=== PATIENT | female | born 1990 | race Caucasian/White ===

== ENCOUNTER 2018-02-03 04:14 | Emergency (ER) | payer OTHER ==
[~2018-02-03] VITALS: Ht 172.7 cm; Wt 97.5 kg
[~2018-02-03 04:14] MED LIST: LEVAQUIN750 MG PO; PROMETHAZINE W118 ML PO; SYNTHROID50 MCG
[2018-02-03] MEDS ORDERED: HIERRO (04:27)
[2018-02-03] MEDS ORDERED: SYNTHROID50 MCG (04:28)
[2018-02-03] MEDS ORDERED: KETO10TA2 PO (06:51)
== END 2018-02-03 07:18 ==
LOC: ER 04:14
DX: S80.02XA Contusion of left knee, initial encounter (principal); W18.39XA Other fall on same level, initial encounter; Y93.89 Activity, other specified; Y92.098 Other place in other non-institutional residence as the place of occurrence of the external cause; Y99.8 Other external cause status

== ENCOUNTER 2023-04-07 12:03 | Emergency (ER) | payer OTHER ==
[~2023-04-07] VITALS: Ht 363.2 cm; Wt 110.7 kg
[~2023-04-07 12:03] MED LIST changes: +DIPHENHYDRAMINE 25 MG; +HIERRO; +KETO10TA2 PO; +PEPCID AC20 MG; +PREDNISONE 20 MG.
[2023-04-07] MEDS ORDERED: FUSION PLUS CA1 EACH PO (12:34)
[2023-04-07] MEDS ORDERED: TIROSINT88 MCG PO (12:34)
== END 2023-04-07 14:54 | disposition home or self-care (01) ==
LOC: ER 12:03
DX: J06.9 Acute upper respiratory infection, unspecified (principal); J00 Acute nasopharyngitis [common cold]; Z88.0 Allergy status to penicillin; Z88.2 Allergy status to sulfonamides

== ENCOUNTER 2023-06-22 13:45 | Inpatient (IN) | payer OTHER ==
[~2023-06-22] VITALS: Ht 170.2 cm; Wt 111.1 kg
[~2023-06-22 13:45] MED LIST changes: +FUSION PLUS CA1 EACH PO; +LEVSIN/SL0.125 MG SL; +ONDANSETRON ODT4 MG PO; +PEPCID40 MG PO; +TIROSINT88 MCG PO
[2023-06-22 16:07] LABS: HEMATOCRIT 35.7 % (36.0-45.00); HEMOGLOBIN 11.9 g/dL (12.0-15.00); MEAN CELL VOLUME 81.7 fL (80.00-100.00); MEAN CORPUSCULAR HEMOGLOBIN 27.3 pg (27.00-32.0); MEAN CORPUSCULAR HGB CONC 33.4 g/dl (32.0-36.0); PLATELET COUNT 328 K/uL (150-450); RED BLOOD COUNT 4.37 M/uL (4.00-6.00); RED CELL DISTRIBUTION WIDTH 16.1 % (11.5-14.5)
[2023-06-22 16:31] LABS: URINE APPEARANCE Clear; URINE BILIRRUBIN Negative (NEGATIVE); URINE BLOOD Negative; URINE COLOR Yellow; URINE GLUCOSE Negative (NEGATIVE); URINE LEUKOCYTE Negative; URINE NITRATE Negative; URINE PROTEIN Negative (NEGATIVE); URINE UROBILINOGEN 0.2 E.U./dl
[2023-06-22 16:32] LABS: URINE BACTERIA 2109.1 uL (0.0-1933); URINE EPITHELIAL CELLS 55.9 uL (0.0-38.8); URINE RBC 18.1 uL (0.0-20.8); URINE WBC 8.3 uL (0.0-23.2)
[2023-06-22 16:32] LABS: ALBUMIN 3.5 gm/dL (3.4-5.0); ALKALINE PHOSPHATASE 57 U/L (50-136); ALT/SGPT 61 U/L (12-78); ANION GAP 6 (10.0-20.0); AST/SGOT 25 U/L (15-37); BILIRUBIN TOTAL 0.23 mg/dL (0.3-1.2); BILIRUBIN,CONJUGATED < 0.10 mg/dL (0.0-0.2); BILIRUBIN,UNCONJUGATED 0.13 mg/dL (0.0-0.6); BLOOD UREA NITROGEN 9 mg/dL (7-18); BUN CREA RATIO 13 (7.0-25.0); CALCIUM 8.6 mg/dL (8.5-10.1); CARBON DIOXIDE 29 mEq/L (21-32); CHLORIDE 105 mmol/L (98-107); CREATININE SERUM 0.68 mg/dL (0.55-1.02); GFR 101.59; GLOBULINA 5.1 G/DL (2.4-3.5); GLUCOSE FASTING 87 mg/dL (65-100); LIPASE 32 U/L (13-75); OSMOLALITY SERUM 272 MOSM/KG (275-295); POTASSIUM 3.47 mEq/L (3.5-5.1); SODIUM 137 mmol/L (136-145); TOTAL PROTEIN 8.6 gm/dL (6.4-8.2)
[2023-06-23 00:09] LABS: INR 1.01; PARTIAL THROMBOPLASTIN TIME 26.8 SECONDS (22.0-34.0); PROTHROMBIN TIME 10.6 SECONDS (9.0-11.5)
== END 2023-06-25 16:56 | disposition home or self-care (01) | DRG 419 ==
LOC: ER 13:45 → MEDJ 20:38
PROVIDERS: Nurse Practitioner Family; Surgery; ADMIT Specialist; ATTEND Specialist
PROC: BW40ZZZ Ultrasonography of Abdomen (ICD-10-PCS; 2023-06-22)
PROC: 0FT44ZZ Resection of Gallbladder, Percutaneous Endoscopic Approach (ICD-10-PCS; principal; 2023-06-24 08:00)
DX: K80.10 Calculus of gallbladder with chronic cholecystitis without obstruction (principal); E03.9 Hypothyroidism, unspecified

== ENCOUNTER 2025-03-06 19:15 | Emergency (ER) | payer OTHER ==
[~2025-03-06] VITALS: Ht 170.2 cm; Wt 108.9 kg
[2025-03-06 19:22] VITALS: BP 124/81; O2SAT 98
[2025-03-06] MEDS ORDERED: FAMOTIDINE/PF 20 MG in 0.9 % SODIUM CHLORIDE 8 ML IV PUSH STA (19:58)
[2025-03-06] MEDS ORDERED: KETOROLAC TROMETHAMINE 30 MG VIAL IV ONE (20:00)
[2025-03-06] MEDS ORDERED: ONDANSETRON HCL 2 MG/ML VIAL IV ONE (20:00)
[2025-03-06] MEDS ORDERED: 0.9 % SODIUM CHLORIDE 1,000 ML IV SCH (20:00)
[2025-03-06] MEDS ORDERED: ONDANSETRON HCL 2 MG/ML VIAL ONE (20:09)
[2025-03-06] MEDS ORDERED: KETOROLAC TROMETHAMINE 30 MG VIAL ONE (20:09)
[2025-03-06] MEDS ORDERED: FAMOTIDINE/PF 20 MG/2 ML VIAL ONE (20:10)
[2025-03-06 20:44] LABS: BASO % 0.5 % (0.1-1.2); EOS # 0.24 (0.04-0.54); EOS % 2.5 % (0.7-7.0); HEMATOCRIT 33.2 % (34.1-44.9); HEMOGLOBIN 10.7 g/dL (11.2-15.7); LYMPH # 3.13 (1.18-3.74); LYMPH % 32.9 % (19.3-53.1); MEAN CORPUSCULAR HEMOGLOBIN 24.5 pg (25.6-32.2); MONO # 0.49 (0.24-0.82); MONO % 5.1 % (4.7-12.5); NEUT # 5.57 (1.56-6.13); NEUT % 58.6 % (34.0-71.1); PLATELET COUNT 321 K/uL (163-369); RED BLOOD COUNT 4.36 M/uL (3.93-5.22); RED CELL DISTRIBUTION WIDTH 14.9 % (11.6-14.4)
[2025-03-06 21:08] LABS: ALBUMIN 3.7 gm/dL (3.4-5.0); BILIRUBIN TOTAL 0.26 mg/dL (0.3-1.2); BILIRUBIN,CONJUGATED 0.1 mg/dL (0.0-0.2); BILIRUBIN,UNCONJUGATED 0.16 mg/dL (0.0-0.6); CALCIUM 8.8 mg/dL (8.5-10.1); CREATININE SERUM 0.63 mg/dL (0.55-1.02); GFR 109.51; POTASSIUM 3.67 mEq/L (3.5-5.1); TOTAL PROTEIN 8.7 gm/dL (6.4-8.2)
[2025-03-07] MEDS ORDERED: PEPCID AC20 MG PO (00:07)
[2025-03-07] MEDS ORDERED: CARAFATE1 GM PO (00:07)
[2025-03-07] MEDS ORDERED: ONDANSETRON ODT8 MG PO (00:08)
== END 2025-03-07 00:27 | disposition home or self-care (01) ==
LOC: ER 19:29
PROVIDERS: General Practice
DX: R10.13 Epigastric pain (principal); R10.11 Right upper quadrant pain; I88.0 Nonspecific mesenteric lymphadenitis; K76.0 Fatty (change of) liver, not elsewhere classified; Z88.0 Allergy status to penicillin; Z88.2 Allergy status to sulfonamides